=== PATIENT | female | born 1975 | race Caucasian/White ===

== ENCOUNTER → 2018-01-13 | Outpatient (CLI) | payer OTHER ==
[2018-01-13 11:04] LABS: BASOPHIL % 0.7 % (0-2); PLATELET COUNT 327 x10^3mcL (130-400)
[2018-01-13 11:06] LABS: RED CELL DISTRIBUTION WIDTH 18.5 % (11.5-14.5)
[2018-01-13 11:11] LABS: rbc morphology (normal/abnorm) ABNORMAL (NORMAL)
[2018-01-13 11:46] LABS: ALBUMIN 3.5 g/dL (3.4-5.0); ALKALINE PHOSPHATASE 57 U/L (46-116); ALT/SGPT 28 U/L (14-59); AST/SGOT 15 U/L (15-37); BILIRUBIN TOTAL 0.37 mg/dL (0.20-1.00); CALCIUM 8.8 mg/dL (8.5-10.1); CARBON DIOXIDE 27.6 mmol/L (21-32); CHLORIDE SERUM 103 mmol/L (98-107); CREATININE SERUM 0.8 mg/dL (0.6-1.0); GFR1 > 60 mL/min; GLUCOSE SERUM 87 mg/dL (74-106); HDL CHOLESTEROL 52 mg/dL (40-60); SODIUM SERUM 138 mmol/L (136-145); TOTAL PROTEIN, SERUM 7.5 g/dL (6.4-8.2); TRIGLYCERIDES 34 mg/dL (<150)
[2018-01-13 12:09] LABS: FREE T4 0.89 ng/dL (0.76-1.46); FREE THYROXINE INDEX 1.8 ug/dL (1.4-4.5); T4(THYROXINE) 5.4 ug/dL (4.7-13.3)
[2018-01-13 12:17] LABS: CHOLESTEROL 121 mg/dL (<200); CHOLESTEROL/HDL RATIO 2.3
[2018-01-13 12:21] LABS: T3 TOTAL 0.78 ng/mL
== END | disposition home or self-care (01) ==
LOC: LB 10:37
PROVIDERS: Family Medicine
DX: Z00.00 Encounter for general adult medical examination without abnormal findings (principal)
CPT/HCPCS: 84439